=== PATIENT | female | born 1960 | race Hispanic/Latino ===

== ENCOUNTER 2017-10-31 09:48 | Outpatient (CLI) | payer BC ==
--- NOTE | 2017-10-31 13:09 | XRay Report ---
XRAY RIGHT SHOULDER THREE VIEWS: With CLINICAL: Right shoulder pain. FINDINGS: Normal glenohumeral alignment. Mild glenohumeral joint arthritis with a tiny inferior humeral osteophyte. Mild acromioclavicular joint arthritis. No fracture or dislocation. No bone lesion. Normal soft tissues. IMPRESSION: Mild arthritis.
== END 2017-10-31 09:49 | disposition home or self-care (01) ==
LOC: SPVIMAG 09:48
PROVIDERS: ATTEND Orthopaedic Surgery
DX: M19.011 Primary osteoarthritis, right shoulder (principal)

== ENCOUNTER 2019-06-23 09:27 | Outpatient (CLI) | payer BC ==
--- NOTE | 2019-06-24 09:02 | Mammography Report ---
DIGITAL SCREENING MAMMOGRAM WITH CAD, 06/23/2019 INDICATION: Routine screening mammography. TECHNIQUE: Digital bilateral 2D mammography was obtained in the craniocaudal and mediolateral obliq ue projections. This examination was interpreted with the benefit of Computer-Aided Detection analysi s. COMPARISON: None. A prior mammogram from [facility] is not available. FINDINGS: Breast Density: The breasts are almost entirely fatty. There is no evidence of dominant mass, suspicious calcifications or architectural distortion in eithe r breast. IMPRESSION: No mammographic evidence of malignancy. Follow up recommendation: Routine yearly BI-RADS Category 1: Negative. A "normal" or negative report should not discourage follow up or biopsy of a clinically significant f inding. A written summary of these findings will be mailed to the patient. The patient will be entered into a mammography reporting system which will generate a reminder letter for the patient's next appointmen t at the appropriate interval. [employer] recommends yearly mammograms starting at age 40 and continuing as l dione as a woman is in good health. Breast MRI is recommended for women with an approximate 20-25% or greater lifetime risk of breast cancer, including women with a strong family history of breast or ova mackenzie cancer or who have been treated for Hodgkin's disease. Signer Name: Vik Kan MD Signed: 06/24/2019 8:58 AM Workstation Name: [id number]
== END 2019-06-23 09:28 | disposition home or self-care (01) ==
LOC: SPVWC 09:27
PROVIDERS: ATTEND Orthopaedic Surgery
DX: Z12.31 Encounter for screening mammogram for malignant neoplasm of breast (principal)
CPT/HCPCS: 77067